=== PATIENT | male | born 2000 | race Two or more races ===

== ENCOUNTER 2025-01-06 14:05 | Emergency (ER) | payer MEDICAID, OTHER ==
[~2025-01-06] VITALS: Ht 175.3 cm; Wt 75.1 kg
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
[2025-01-06] MEDS ORDERED: CEPH250C PO (15:48)
[2025-01-06 17:15] VITALS: BP 121/78; PULSE 101; RESP 18; TEMP 99; O2SAT 98
[2025-01-06] MEDS: cefTRIAXone SOD 500 MG VL IM ONE (17:16)
== END 2025-01-06 17:33 | disposition home or self-care (01) ==
LOC: ER 14:05
DX: J02.9 Acute pharyngitis, unspecified (principal); Z98.890 Other specified postprocedural states
CPT/HCPCS: 96372; 99283; J0696